=== PATIENT | female | born 1970 | race American Indian/Alaskan Native ===

== ENCOUNTER 2018-03-13 08:20 | Outpatient (CLI) | payer OTHER ==
--- NOTE | 2018-03-13 08:54 | Mammography Report ---
BILATERAL MAMMOGRAM: FINDINGS: The breast tissue is heterogeneously dense, which could obscure detection of small masses (approximately 50%-75% glandular). No mass, distortion, suspicious calcification, or skin change is seen. No significant change compared to prior exam in May 2015. CAD was utilized. IMPRESSION: Negative mammogram. There is no mammographic evidence of malignancy. RECOMMENDATION: Follow-up per ACS guidelines. BI-RADS CATEGORY: 1 = Negative ACR BI-RADS MAMMOGRAPHIC CODES: 0 = Needs additional imaging evaluation; 1 = Negative; 2 = Benign; 3 = Probably benign; 4 = Suspicious; 5 = Malignant; 6 = Known biopsy-proven malignancy COMMENT: 1. Dense breast tissue, i.e., adenosis, fibrocystic changes, etc., may obscure an underlying neoplasm. 2. Approximately 10% of cancers are not detected with mammography. 3. A negative mammography report should not delay biopsy if a clinically suspicious mass is present. COMMENT: Patient follow-up letters are generated in [employer].
== END 2018-03-13 08:21 | disposition home or self-care (01) ==
LOC: MAMMO 08:20
PROVIDERS: ATTEND Obstetrics & Gynecology
DX: Z12.31 Encounter for screening mammogram for malignant neoplasm of breast (principal)
CPT/HCPCS: 77067

== ENCOUNTER 2021-01-19 17:39 | Emergency (ER) | payer BC, OTHER ==
[2021-01-19 23:06] LABS: Basophils % (Auto) 0.4 % (0.0-1.8); Hematocrit 38.2 % (30.3-42.9); Hemoglobin 12.6 gm/dl (10.1-14.3); Lymphocytes # (Auto) 1.7 K/mm3 (1.2-5.4); Lymphocytes % (Auto) 19.6 % (13.4-35.0); Mean Corpuscular HGB Conc 33 % (30-34); Mean Corpuscular Volume 80 fl (79-97); Monocytes # (Auto) 1.1 K/mm3 (0.0-0.8); Monocytes % (Auto) 12.8 % (0.0-7.3); Platelet Count 200 K/mm3 (140-440); Red Blood Count 4.76 M/mm3 (3.65-5.03); Red Cell Distribution Width 15.5 % (13.2-15.2)
[2021-01-19 23:38] LABS: BUN/Creatinine Ratio 10; Blood Urea Nitrogen 9 mg/dL (7-17); Calcium 9.2 mg/dL (8.4-10.2); Hemolysis Index 0
[2021-01-20 02:19] LABS: Bacteria,Urine 4+ /HPF (Negative); Bilirubin,Urine NEG (Negative); Blood,Urine MOD (Negative); Color,Urine Yellow (Yellow); Mucus,Urine FEW /HPF; Urobilinogen,Urine < 2.0 mg/dL (<2.0)
[2021-01-20 02:20] LABS: WBC,Urine > 182.0 /HPF (0.0-6.0)
[2021-01-20] MEDS ORDERED: SODIUM CHLORIDE 0.9% 1000 ML 1,000 ML IV ONE ×2 (09:24→13:25)
[2021-01-20] MEDS ORDERED: KETOROLAC 30 MG/1 ML INJ IV ONE (09:24)
[2021-01-20] MEDS ORDERED: ONDANSETRON 4 MG/2 ML INJ IV ONE (09:24)
[2021-01-20] MEDS ORDERED: INSULIN REGULAR, HUMAN 100 UNITS/1 ML IV ONE ×2 (09:24→13:25)
[2021-01-20] MEDS ORDERED: cefTRIAXone/NS 1 GM/50 ML 1 GM/50 ML BAG IV ONE (09:25)
--- NOTE | 2021-01-20 10:06 | Cat Scan Report ---
CT OF THE ABDOMEN AND PELVIS WITH INTRAVENOUS CONTRAST INDICATION / CLINICAL INFORMATION: Left flank pain and urinary frequency. TECHNIQUE: The patient received 100 cc Omnipaque [address] scans at this location are performed using CT dose reduction for ALARA by means of automated exposure control. COMPARISON: 12/01/12. FINDINGS: ABDOMEN: There is moderate patchy inhomogeneity of the left nephrogram, most prominent in the upper p ole. There is a minimal area of patchy decreased density in the right nephrogram in the lower pole an teriorly. There is minimal left perinephric soft tissue stranding. I do not identify a renal abscess or perinephric fluid collection. There is mild nonobstructive nephrolithiasis bilaterally. The liver measures 19.7 cm in length and demonstrates moderate generalized decreased density compared to the spleen. There are multiple small rounded areas of relative increased density scattered throug hout both lobes of the liver. The largest abnormality measures approximately 1.8 cm in the left lobe. The gallbladder is surgically absent. The bile ducts and pancreas, spleen, adrenal glands and bowel d emonstrate no significant abnormality. No adenopathy is present. The lung bases are clear. PELVIS: The distal ureters and urinary bladder are normal. The uterus and ovaries are not identified. A normal appendix is present and there is no evidence of diverticulitis. No abnormal mass or fluid c ollection is seen. I do not identify a hernia. There is mild degenerative disc disease at L5-S1. I se e no evidence of osseous metastatic disease. IMPRESSION: 1. Findings characteristic of acute pyelonephritis bilaterally, much greater on the left than the rig ht. No evidence of renal or perirenal abscess. 2. Hepatomegaly with moderate diffuse fatty infiltration. Multiple incidental liver lesions scattered throughout both lobes, the largest which measures 1.8 cm. Differential diagnosis includes metastatic disease, multifocal HCC and multiple benign lesions such as hepatic adenomas. Signer Name: Derek Olvera MD Signed: 01/20/2021 10:02 AM Workstation Name: [id number]
--- NOTE | 2021-01-20 10:14 | Emergency Department Report ---
ED General Adult HPI - General Chief complaint: Hyperglycemia Stated complaint: LLQ PAIN/DIABETIC Time Seen by Provider: 01/20/21 09:15 Source: patient Mode of arrival: Ambulatory Limitations: No Limitations - History of Present Illness Initial comments: 50-year-old -[place] female patient with history of diabetes presents with complaints of elevated blood glucose levels and left flank pain for the past few days. She admits to urinary frequency and pressure in her bladder for the past 2 weeks. She denies any fever/chills/sweats, stool changes, vomiting, chest pain, or shortness of breath. Patient states she also has a history of kidney stones. She is compliant with her diabetic medications per patient. She rates her current pain as a 10/10 in severity. - Related Data Previous Rx's Medication Instructions Recorded Last Taken Type Acetaminophen/Codeine [Tylenol 1 tab PO Q8H PRN #10 tab 01/20/21 Unknown Rx /Codeine # 3 tab] Ciprofloxacin HCl 500 mg PO BID 7 Days #14 tablet 01/20/21 Unknown Rx Allergies Allergy/AdvReac Type Severity Reaction Status Date / Time No Known Allergies Allergy Unverified 03/13/18 08:20 ED Review of Systems ROS: Stated complaint: LLQ PAIN/DIABETIC Other details as noted in HPI Constitutional: denies: chills, diaphoresis, fever, malaise, weakness ENT: denies: throat pain Respiratory: denies: cough, shortness of breath Cardiovascular: denies: chest pain Gastrointestinal: abdominal pain. denies: nausea, vomiting, diarrhea, constipation, hematemesis, melena, hematochezia Genitourinary: urgency, frequency. denies: dysuria, hematuria, discharge Musculoskeletal: back pain Neurological: denies: headache Hematological/Lymphatic: denies: swollen glands ED Past Medical Hx - Past Medical History Previous Medical History?: Yes Hx Diabetes: Yes Hx Kidney Stones: Yes Additional medical history: Ketoaciddosis - Surgical History Past Surgical History?: Yes Hx Cholecystectomy: Yes Additional Surgical History: Hysterectomy, Lithrotripy - Social History Smoking Status: Never Smoker Substance Use Type: None - Medications Home Medications: Home Medications Medication Instructions Recorded Confirmed Last Taken Type Acetaminophen/Codeine [Tylenol 1 tab PO Q8H PRN #10 tab 01/20/21 Unknown Rx /Codeine # 3 tab] Ciprofloxacin HCl 500 mg PO BID 7 Days #14 tablet 01/20/21 Unknown Rx ED Physical Exam - General Limitations: No Limitations General appearance: alert, in no apparent distress - Head Head exam: Present: atraumatic, normocephalic - Eye Eye exam: Present: normal appearance. Absent: scleral icterus - Respiratory Respiratory exam: Present: normal lung sounds bilaterally. Absent: respiratory distress - Cardiovascular Cardiovascular Exam: Present: normal rhythm, tachycardia - GI/Abdominal GI/Abdominal exam: Present: soft, tenderness (Suprapubic, left lower), normal bowel sounds. Absent: distended, guarding, rebound, rigid - Back Exam Back exam: Present: CVA tenderness (L) - Neurological Exam Neurological exam: Present: alert, oriented X3, normal gait - Psychiatric Psychiatric exam: Present: normal affect, normal mood - Skin Skin exam: Present: warm, dry, intact, normal color. Absent: rash ED Course Vital Signs 01/19/21 01/20/21 01/20/21 21:48 09:19 12:19 Temperature 99.2 F 100.2 F H Pulse Rate 124 H 110 H 110 H Respiratory 18 17 Rate Blood Pressure 137/78 Blood Pressure 106/60 [Left] O2 Sat by Pulse 97 98 100 Oximetry 01/20/21 01/20/21 12:20 13:39 Temperature 99.5 F Pulse Rate 100 H Respiratory Rate Blood Pressure Blood Pressure 106/57 [Left] O2 Sat by Pulse 100 100 Oximetry ED Medical Decision Making - Lab Data Result diagrams: 01/19/21 22:50 01/19/21 22:50 Lab Results 01/19/21 01/19/21 01/19/21 Range/Units 21:55 22:50 22:50 WBC 8.5 (4.5-11.0) K/mm3 RBC 4.76 (3.65-5.03) M/mm3 Hgb 12.6 (10.1-14.3) gm/dl Hct 38.2 (30.3-42.9) % MCV 80 (79-97) fl MCH 26 L (28-32) pg MCHC 33 (30-34) % RDW 15.5 H (13.2-15.2) % Plt Count 200 (140-440) K/mm3 Lymph % (Auto) 19.6 (13.4-35.0) % Lynn % (Auto) 12.8 H (0.0-7.3) % Eos % (Auto) 0.0 (0.0-4.3) % Baso % (Auto) 0.4 (0.0-1.8) % Lymph # (Auto) 1.7 (1.2-5.4) K/mm3 Lynn # (Auto) 1.1 H (0.0-0.8) K/mm3 Eos # (Auto) 0.0 (0.0-0.4) K/mm3 Baso # (Auto) 0.0 (0.0-0.1) K/mm3 Seg Neutrophils % 67.2 (40.0-70.0) % Seg Neutrophils # 5.7 (1.8-7.7) K/mm3 VBG pH (7.320-7.420) Sodium 135 L (137-145) mmol/L Potassium 3.6 (3.6-5.0) mmol/L Chloride 96.7 L (98-107) mmol/L Carbon Dioxide 23 (22-30) mmol/L Anion Gap 19 mmol/L BUN 9 (7-17) mg/dL Creatinine 0.9 (0.6-1.2) mg/dL Estimated GFR > 60 ml/min BUN/Creatinine Ratio 10 % Glucose 332 H (65-100) mg/dL POC Glucose 330 H (70-105) mg/dL Calcium 9.2 (8.4-10.2) mg/dL Urine Color (Yellow) Urine Turbidity (Clear) Urine pH (5.0-7.0) Ur Specific Milnor (1.003-1.030) Urine Protein (Negative) mg/dL Urine Glucose (UA) (Negative) mg/dL Urine Ketones (Negative) mg/dL Urine Blood (Negative) Urine Nitrite (Negative) Urine Bilirubin (Negative) Urine Urobilinogen (<2.0) mg/dL Ur Leukocyte Esterase (Negative) Urine WBC (Auto) (0.0-6.0) /HPF Urine RBC (Auto) (0.0-6.0) /HPF U Epithel Cells (Auto) (0-13.0) /HPF Urine Bacteria (Auto) (Negative) /HPF Urine WBC Clumps /HPF Urine Mucus /HPF 01/19/21 01/19/21 Range/Units 22:50 Unknown WBC (4.5-11.0) K/mm3 RBC (3.65-5.03) M/mm3 Hgb (10.1-14.3) gm/dl Hct (30.3-42.9) % MCV (79-97) fl MCH (28-32) pg MCHC (30-34) % RDW (13.2-15.2) % Plt Count (140-440) K/mm3 Lymph % (Auto) (13.4-35.0) % Lynn % (Auto) (0.0-7.3) % Eos % (Auto) (0.0-4.3) % Baso % (Auto) (0.0-1.8) % Lymph # (Auto) (1.2-5.4) K/mm3 Lynn # (Auto) (0.0-0.8) K/mm3 Eos # (Auto) (0.0-0.4) K/mm3 Baso # (Auto) (0.0-0.1) K/mm3 Seg Neutrophils % (40.0-70.0) % Seg Neutrophils # (1.8-7.7) K/mm3 VBG pH 7.375 (7.320-7.420) Sodium (137-145) mmol/L Potassium (3.6-5.0) mmol/L Chloride (98-107) mmol/L Carbon Dioxide (22-30) mmol/L Anion Gap mmol/L BUN (7-17) mg/dL Creatinine (0.6-1.2) mg/dL Estimated GFR ml/min BUN/Creatinine Ratio % Glucose (65-100) mg/dL POC Glucose (70-105) mg/dL Calcium (8.4-10.2) mg/dL Urine Color Yellow (Yellow) Urine Turbidity Cloudy (Clear) Urine pH 6.0 (5.0-7.0) Ur Specific Milnor 1.015 (1.003-1.030) Urine Protein 100 mg/dl (Negative) mg/dL Urine Glucose (UA) >=500 (Negative) mg/dL Urine Ketones 80 (Negative) mg/dL Urine Blood Mod (Negative) Urine Nitrite Pos (Negative) Urine Bilirubin Neg (Negative) Urine Urobilinogen < 2.0 (<2.0) mg/dL Ur Leukocyte Esterase Lg (Negative) Urine WBC (Auto) > 182.0 H (0.0-6.0) /HPF Urine RBC (Auto) 6.0 (0.0-6.0) /HPF U Epithel Cells (Auto) < 1.0 (0-13.0) /HPF Urine Bacteria (Auto) 4+ (Negative) /HPF Urine WBC Clumps 2+ /HPF Urine Mucus Few /HPF - Radiology Data Radiology results: report reviewed - Medical Decision Making 50-year-old -[place] female patient with history of diabetes presents with complaints of elevated blood glucose levels and left flank pain for the past few days. She admits to urinary frequency and pressure in her bladder for the past 2 weeks. She denies any fever/chills/sweats, stool changes, vomiting, chest pain, or shortness of breath. Patient states she also has a history of kidney stones. She is compliant with her diabetic medications per patient. She rates her current pain as a 10/10 in severity. White count is normal CBC. UA shows >182 WBCs. Given patient's history of kidney stones with CVA tenderness and a UTI, CT abdomen was performed and shows bilateral pyelonephritis, left worse than right without stones or other acute abnormalities. CT also shows incidental findings of liver lesions-patient denies history of abnormal liver findings. Discussed importance of follow-up with GI specialist for further evaluation of these lesions, patient verbalizes understanding. Patient given IV Rocephin and will discharge home on ciprofloxacin. She also was given a liter of saline and her heart rate is now controlled. He remains well-appearing and stable for discharge home. Discussed in detail with patient's diagnosis, care plan, and strict return precautions, she verbalized understanding. Critical care attestation.: If time is entered above; I have spent that time in minutes in the direct care of this critically ill patient, excluding procedure time. ED Disposition Clinical Impression: Pyelonephritis, Liver lesion Disposition: 01 HOME / SELF CARE / HOMELESS Is pt being admited?: No Condition: Stable Instructions: Pyelonephritis, Adult Prescriptions: Ciprofloxacin HCl 500 mg PO BID 7 Days #14 tablet Acetaminophen/Codeine [Tylenol /Codeine # 3 tab] 1 tab PO Q8H PRN #10 tab PRN Reason: Pain , Severe (7-10) Referrals: PRIMARY CARE, [Primary Care Provider] - 2-3 Days (Pyleonephritis, Liver lesions ) [facility] [Provider Group] - 2-3 Days (Liver lesions ) Forms: Work/School Release Form(ED)
[2021-01-20] MEDS: MORPHINE 4 MG/1 ML INJ IV ONE (11:27)
[2021-01-20 13:40] VITALS: BP 106/57
== END 2021-01-20 15:31 | disposition home or self-care (01) ==
LOC: ED 17:39
DX: N12 Tubulo-interstitial nephritis, not specified as acute or chronic (principal); K76.9 Liver disease, unspecified; E11.10 Type 2 diabetes mellitus with ketoacidosis without coma; Z79.899 Other long term (current) drug therapy; Z98.890 Other specified postprocedural states; Z90.710 Acquired absence of both cervix and uterus; Z90.49 Acquired absence of other specified parts of digestive tract
CPT/HCPCS: 36415; 74177; 80048; 81001; 82805; 82962; 85025; 96361; 96365; 96375; 96376; 99284; J0696; J1885; J2270; J2405; J7030; Q9967; J1815

== ENCOUNTER 2021-03-13 08:55 | Outpatient (CLI) | payer BC ==
--- NOTE | 2021-03-13 11:49 | Mammography Report ---
DIGITAL SCREENING MAMMOGRAM WITH CAD, 03/13/2021 CLINICAL INFORMATION / INDICATION: Routine screening mammography. SCREENING MAMMOGRAM TECHNIQUE: Digital bilateral 2D mammography was obtained in the craniocaudal and mediolateral obliqu e projections. This examination was interpreted with the benefit of Computer-Aided Detection analysis . COMPARISON: 05/13/2015 and 03/13/2018. FINDINGS: Breast Density: The breasts are heterogeneously dense, which may obscure small masses. No dominant mass, suspicious calcifications, or architectural distortion in either breast. IMPRESSION: No mammographic evidence of malignancy. Follow up recommendation: Routine yearly BI-RADS Category 1: Negative. A "normal" or negative report should not discourage follow up or biopsy of a clinically significant f inding. A written summary of these findings will be mailed to the patient. The patient will be entered into a mammography reporting system which will generate a reminder letter for the patient's next appointmen t at the appropriate interval. The [employer] recommends yearly mammograms starting at age 40 and continuing as l davon as a woman is in good health. Breast MRI is recommended for women with an approximate 20-25% or greater lifetime risk of breast cancer, including women with a strong family history of breast or ova timmy cancer or who have been treated for Hodgkin's disease. Signer Name: Derek Olvera MD Signed: 03/13/2021 11:45 AM Workstation Name: [id number]
== END 2021-03-13 08:56 | disposition home or self-care (01) ==
LOC: MAMMO 08:55
PROVIDERS: ATTEND Obstetrics & Gynecology
DX: Z12.31 Encounter for screening mammogram for malignant neoplasm of breast (principal); N64.89 Other specified disorders of breast
CPT/HCPCS: 77067